=== PATIENT | female | born 1945 | race Caucasian/White ===

== ENCOUNTER 2016-10-27 19:55 | Emergency (ER) | payer OTHER ==
[~2016-10-27] VITALS: Ht 165.1 cm; Wt 80.9 kg
[~2016-10-27 19:55] MED LIST: ASPIR 8181 M1 PO; CIPRO500 MG PO; DOXYCYCLINE HY100 MG PO; LISINOPRIL-HCT1 EACH; METOPROLOL TART50 MG PO; PYRIDIUM100 MG PO; WARFARIN SODIUM3 MG PO
[2016-10-27] MEDS ORDERED: NAPROXEN500 MG PO (22:53)
[2016-10-27 23:24] VITALS: BP 158/84
== END 2016-10-27 23:25 | disposition home or self-care (01) ==
LOC: EME 19:55
DX: S83.92XA Sprain of unspecified site of left knee, initial encounter (principal); V48.4XXA Person boarding or alighting a car injured in noncollision transport accident, initial encounter; I10 Essential (primary) hypertension
CPT/HCPCS: 73564; 99281; 99284